=== PATIENT | female | born 1975 | race Caucasian/White ===

== ENCOUNTER → 2021-09-16 | Day surgery (SDC) | payer MEDICARE, MEDICAID ==
[2021-09-13 16:27] LABS: BASOPHILS % (AUTO) 0.4 % (0-1); EOSINOPHILS # (AUTO) 0.1 X10'3 (0-0.9); EOSINOPHILS % (AUTO) 1.5 % (0-6); LYMPHOCYTES # (AUTO) 1.4 X10'3 (1.1-4.8); LYMPHOCYTES % (AUTO) 24.6 % (21-51); MEAN CORPUSCULAR HEMOGLOBIN 34.8 PG (27.0-31.0); MEAN CORPUSCULAR HGB CONC 34.5 g/dL (33.0-36.5); MEAN CORPUSCULAR VOLUME 100.7 FL (78-98); MEAN PLATELET VOLUME 7.7 FL (7.4-10.4); MONOCYTES # (AUTO) 0.5 X10'3 (0-0.9); MONOCYTES % (AUTO) 9.1 % (2-12); NEUTROPHILS # (AUTO) 3.6 X10'3 (1.8-7.7); NEUTROPHILS % (AUTO) 64.4 % (42-75); PRE OP HEMATOCRIT 41.8 % (35.0-45.0); PRE OP HEMOGLOBIN 14.4 g/dL (12.0-16.0); PRE OP PLATELET COUNT 206 X10'3 (140-440); RED BLOOD COUNT 4.15 X10'6 (4.20-5.60); RED CELL DISTRIBUTION WIDTH 15.2 % (11.5-14.5)
[2021-09-13 16:29] LABS: CLARITY,URINE CLOUDY (Clear); COLOR,URINE YELLOW (Yellow); GLUCOSE, URINE NEGATIVE (Neg); KETONES,URINE TRACE mg/dl (Neg); LEUKOCYTE ESTERASE ,URINE MODERATE (Neg); NITRITES, URINE POSITIVE (Neg); OCCULT BLOOD,URINE NEGATIVE (Neg); PROTEIN,URINE TRACE mg/dl (Neg); UROBILINOGEN,URINE 0.2 E.U/dL (0.2-1.0)
[2021-09-13 16:31] LABS: UA COLLECTION TYPE CLN CATCH MIDSTREAM
[2021-09-13 16:40] LABS: ALBUMIN 3.2 G/DL (3.4-5.0); ALBUMIN/GLOBULIN RATIO 0.9 (1.1-1.5); ALKALINE PHOSPHATASE 86 IU/L (46-116); BLOOD UREA NITROGEN 11 MG/DL (7-18); CHLORIDE 103 MMOL/L (99-107); CREATININE 0.92 MG/DL (0.40-0.90); PRE OP ANION GAP 10 (8-16); PRE OP AST 7 U/L (10-37); PRE OP BILIRUB, TOTAL 0.3 MG/DL (0.0-1.0); PRE OP GLUCOSE 88 MG/DL (70-104); PRE OP POTASSIUM 4.4 MMOL/L (3.4-5.1); PRE OP SODIUM 136 MMOL/L (135-145); TOTAL CARBON DIOXIDE 23.4 MMOL/L (24-32); TOTAL PROTEIN 6.7 G/DL (6.4-8.2); eGFR 65 ML/MIN
[2021-09-13 16:43] LABS: BACTERIA,URINE 4+ /HPF (Neg); SQUAMOUS EPITHELIAL CELL,UR MANY /LPF (FEW); WBC,URINE TNTC /HPF (0-4)
[2021-09-13 16:45] LABS: RBC,URINE 0-2 /HPF (0-2)
[2021-09-13 17:05] LABS: HCG SERUM QL NEGATIVE; PRE OP ALT 2 U/L (30-65)
[~2021-09-16] VITALS: Ht 170.2 cm; Wt 90.7 kg
[~2021-09-16] MED LIST: CHOL20004 PO; DIAZ10SP INH; DIVA-37 PO; DOCUMENT DATE & TIME OF BETA-BLOCKER PO ONE; DULO30CA52 PO; DULO60CA65 PO; ESLI800T PO; LINA145C PO; MIRT45TA83 PO; OMEP20CA16 PO; PERA6TAB PO; PROP10TA10 PO; famotidine 20mg tablet PO ONE; ringers solution, lacted 1,000 ML IV SCH
--- NOTE | 2021-09-16 10:13 | NUR ---
PT ARRIVED TO PAS UNIT AT 0815, VITALS WERE TAKEN AND PT CHECKED IN. UPON ARRIVAL PT WAS AWAKE, ANSWERING QUESTIONS APPROPRIATELY AND WAS VISIBLY NERVOUS, PT STATES SHE WAS NERVOUS. NURSING GATHERED SUPPLIES AND ENTERED PT'S ROOM AND PT WAS LETHARGIC. PT WAS DIFFICULT TO AROUSE. PT WOULD WAKE UP BRIEFLY THEN FALL BACK TO SLEEP INSTANTLY, NURSING HAS BEEN UNABLE TO KEEP PATIENT AWAKE LONG ENOUGH TO GET THROUGH PRE-OP QUESTIONS. PT PLACED ON MONITOR, O2 SAT WAS LOW 90'S, PT THEN PLACED ON 3L NC PT SATS ANY WHERE FROM 85-98% WHILE DEEP SLEEP AND SNORING. VSS. PUPILS ARE DILATED WHEN FIRST WAKING UP, BOTH EQUAL AND REACTIVE TO LIGHT. ANESTHESIA MADE AWARE OF PT CONDITION, ORDER RECEIVED TO COLLECT URINE AND SEND FOR UA. URINE HAS BEEN COLLECTED AND SEND TO LAB, AWAITING RESULTS. PT IS STILL SLEEPY, WAKES MOMENTARILY TO VERBAL STIMULI THEN FALLS BACK TO SLEEP. IV WAS STARTED (20G PIV TO RT HAND) AND LR IS INFUSING. ZERO MEDICATIONS HAVE BEEN GIVEN. WILL CONTINUE TO ASSESS.
[2021-09-16 10:24] LABS: URINE AMPHETAMINE SCREEN NEGATIVE (Neg); URINE BARBITUATE SCREEN NEGATIVE (Neg); URINE BENZODIAZEPINES SCREEN NEGATIVE (Neg); URINE CANNABINOID SCREEN POSITIVE (Neg); URINE COCAINE SCREEN NEGATIVE (Neg); URINE METHADONE SCREEN NEGATIVE (Neg); URINE OPIATE SCREEN NEGATIVE (Neg); URINE PHENCYCLIDINE SCREEN NEGATIVE (Neg)
[2021-09-16 10:53] LABS: ABG BASE EXCESS 3.6 mmol/L (-2.0-2.0); ABG HCO3 30.1 mmol/L (22.0-26.0); ABG OXYGEN SATURATION 96.3 % (94-97); ABG PCO2 (T) 53.7 mmHg (32.0-45.0); ALLEN'S TEST POSITIVE; FCOHb 1.6 % (0.0-3.9); FLOW 3 L/min; FMetHb 0.4 % (0.0-1.5); FO2Hb 94.4 % (94-97); TOTAL HEMOGLOBIN 13.8 G/dl (12.0-16.0)
--- NOTE | 2021-09-16 12:00 | NUR ---
ABG WAS COLLECTED AND HAS RESULTED, PLEASE SEE CHART FOR INFO. EPIC WILLOW ANALYST ALONG WITH NURSING AT PT'S BEDSIDE TO DISCUSS PLAN WITH PT. MD IS AWARE OF PT'S CONDITION AND DECISION WAS MADE TO CANCEL PT'S SURGERY FOR TODAY. PT WAS INSTRUCTED TO FOLLOW UP WITH PRIMARY MD AND DR CHAKRABORTY'S OFFICE. PT IS UNDERSTANDING AND EXPRESSED THAT SHE WANTS TO BE SAFE AND AGREED TO NOT MOVE FORWARD WITH SURGERY TODAY. PT'S RIDE WILL BE CALLED AND PT WILL D/C TO TO FOLLOW UP.
--- NOTE | 2021-09-16 13:31 | NUR ---
PT'S SURGERY WAS CANCELED D/T PT BEING SO LETHARGIC. PT INSTRUCTED TO FOLLOW UP WITH PRIMARY MD WELL DR CHAKRABORTY'S OFFICE. PT ALSO STATED SHE WOULD FOLLOW UP WITH [facility] IN [facility] TO RECEIVING NEW CPAP MACHINE. PT WAS TAKEN DOWN TO RIDE VIA WHEELCHAIR. PT HAD ALL OF HER PERSONAL BELONGINGS WELL BOOT AND CRUTCHES. PT'S FATHER WAS HER RIDE HOME AND WAS INSTRUCTED ON HOW TO PROCEED FOR RESCHEDULING OF SURGERY.
== END | disposition home or self-care (01) ==
LOC: PAS 08:00
PROVIDERS: ATTEND Podiatrist Foot & Ankle Surgery
DX: S82.401A Unspecified fracture of shaft of right fibula, initial encounter for closed fracture (principal); Z53.8 Procedure and treatment not carried out for other reasons; S82.871A Displaced pilon fracture of right tibia, initial encounter for closed fracture; M25.471 Effusion, right ankle; X58.XXXA Exposure to other specified factors, initial encounter; Y93.89 Activity, other specified; Y92.89 Other specified places as the place of occurrence of the external cause; Y99.8 Other external cause status; Z79.899 Other long term (current) drug therapy; F17.210 Nicotine dependence, cigarettes, uncomplicated; K21.9 Gastro-esophageal reflux disease without esophagitis; F32.9 Major depressive disorder, single episode, unspecified; F43.10 Post-traumatic stress disorder, unspecified
CPT/HCPCS: 36415; 36600; 80053; 80305; 81001; 82803; 82948; 84703; 85018; 85025; 87811; 93005; C1758; J7120; A4615

== ENCOUNTER 2021-09-23 11:11 | Day surgery (SDC) | payer MEDICARE, MEDICAID ==
[~2021-09-23] VITALS: Ht 170.2 cm; Wt 93.7 kg
[2021-09-23] VITALS (15 sets, daily range): BP systolic 107–140; BP diastolic 73–96
[2021-09-23] MEDS: ceFAZolin inj. 2,000 MG in dextrose 5%-water 100 ML IV ONE (05:30)
[~2021-09-23 11:11] MED LIST changes: +albuterol 2.5 MG/3 ML nebule NEB PRN; -famotidine 20mg tablet PO ONE; -ringers solution, lacted 1,000 ML IV SCH
[2021-09-23] MEDS: famotidine 20mg tablet PO ONE (12:07)
[2021-09-23] MEDS: ringers solution, lacted 1,000 ML IV SCH (12:07)
[2021-09-23] MEDS ORDERED: propranolol 10mg tablet PO STA (12:27)
[2021-09-23] MEDS ORDERED: fentaNYL/PF 50MCG/1 ML 2ML syringe ONE ×2 (13:14→15:35)
[2021-09-23] MEDS ORDERED: midazolam 1 mg/ML 2ml injection ONE (13:14)
[2021-09-23] MEDS ORDERED: sevoflurane 250ml liquid IH ONE (13:14)
[2021-09-23] MEDS ORDERED: ePHEDrine 50MG/ML INJ. ONE (13:14)
[2021-09-23] MEDS ORDERED: cloNIDine hcl/PF 100mcg/ml inj ONE (13:16)
[2021-09-23] MEDS ORDERED: morphine 4 MG/ML inj SYRINge IV PRN (14:20)
[2021-09-23] MEDS ORDERED: ROPIVAcaine 0.2% (10 MG/5 ML) BOLUS INJECTION POPLITEAL PRN (14:20)
[2021-09-23] MEDS ORDERED: ringers solution, lacted 1,000 ML IV SCH (14:20)
[2021-09-23] MEDS ORDERED: ondansetron/PF 4mg/2ml inj IV PRN (14:20)
[2021-09-23] MEDS ORDERED: morphine 2 MG/ML inj. syringe IV PRN (14:20)
[2021-09-23] MEDS ORDERED: meperidine/PF 25mg/ml syringe IV PRN ×3 (14:20)
[2021-09-23] MEDS ORDERED: proCHLORperazine 10 MG/2 ml inj IV PRN (14:20)
[2021-09-23] MEDS ORDERED: propofol inj 20 ML IV ONE (14:54)
[2021-09-23] MEDS ORDERED: LIDOcaine 1%/PF 5ML 10 MG/ML VIAL ONE (14:54)
[2021-09-23] MEDS ORDERED: dexamethasone sod phosphate 4mg/ml inj. ONE (14:54)
[2021-09-23] MEDS ORDERED: glycopyrrolate 0.2mg/ml inj ONE (14:54)
[2021-09-23] MEDS ORDERED: rocuronium 10mg/ml inj IV ONE (14:54)
[2021-09-23] MEDS ORDERED: neostigmine methylsulfate 1 MG/ML 10ml vial ONE (14:54)
[2021-09-23] MEDS ORDERED: ondansetron/PF 4mg/2ml inj ONE (14:54)
[2021-09-23] MEDS ORDERED: acetaminophen 1,000mg/100ml IV 100 ML IV ONE (15:35)
[2021-09-23] MEDS ORDERED: labetalol 20mg/4ml (5mg/ml) syringe IV ONE (15:45)
[2021-09-23] MEDS ORDERED: morphine 10mg/ml inj. ONE ×2 (16:57→16:58)
[2021-09-23] MEDS ORDERED: bacitracin 15gm ointment TP ONE (17:00)
--- NOTE | 2021-09-23 17:31 | NUR ---
Received from OR via [facility] , accompanied by Anesthesiologist KELTON and report given by Anesthesiolgist. PT ARRIVES TO RR DROWSY BUT RESPONSIVE TO TOUCH STIMULI. PT SLEEPING BETWEEN CARE DENIES PAIN, MASK 10L 90-95%. R FOOT SPLINT/WRAP IN PLACE, DRY AND INTACT, RLE SKIN WARM TO TOUCH. ON-Q ACCESS TO R THIGH, CLEAN DRY AND INTACT. Addendum: 09/23/21 at 1757 by Capo Pacheco RN Amended: Links added.
--- NOTE | 2021-09-23 19:00 | NUR ---
PT UNABLE TO VOID AND SYMPTOMATIC URINARY RETENTION, NOTIFIED, AT BEDSIDE. STRAIGHT CATHETER PERFORMED BY FEMALE RN, 780 ML OUT. Addendum: 09/23/21 at 1931 by Capo Pacheco RN Amended: Links added.
[2021-09-23] MEDS: ROPIVAcaine 0.2%/PF PUMP/bolus 545 ML POPLITEAL SCH (19:14)
--- NOTE | 2021-09-23 19:15 | NUR ---
ROPIVICAINE PUMP INSTRUCTION AND EDUCATION PROVIDED. PT VERBALIZED UNDERSTANDING. Addendum: 09/23/21 at 1928 by Capo Pacheco RN Amended: Links added.
--- NOTE | 2021-09-23 20:11 | NUR ---
PT OUT OF PACU VIA WHEELCHAIR INTO CARE OF JORDEN. PT STEADY WITH STAND AND PIVOT AND INDEPENDENT, PROFICIENT IN CRUTCH USE. PT HAS NO COMPLAINT OF PAIN, DRESSING CLEAN DRY AND INTACT TO RLE. POSITIVE CMS. PT AAOX4. DC TO POV WITHOUT INCIDENT. IV REMOVED. Addendum: 09/23/21 at 2012 by Capo Pacheco RN Amended: Links added.
== END 2021-09-23 20:11 | disposition home or self-care (01) ==
LOC: PAS 11:11
PROVIDERS: ATTEND Podiatrist Foot & Ankle Surgery
DX: S82.401A Unspecified fracture of shaft of right fibula, initial encounter for closed fracture (principal); S82.871A Displaced pilon fracture of right tibia, initial encounter for closed fracture; M25.471 Effusion, right ankle
CPT/HCPCS: 27792; 27827; 64450; 73600; 76000; 76942; 82948; 87635; 93306; A6223; C1713; C1758; C9803; J0131; J0690; J0735; J1100; J2250; J2274; J2405; J2704; J2710; J2795; J3010; J3490; J7030; J7060; J7120; Z7506; Z7508; Z7512; A4618; A6253; A6449; A7000

== ENCOUNTER 2022-02-13 11:47 | Emergency (ER) | payer MEDICARE, MEDICAID ==
[~2022-02-13] VITALS: Ht 172.7 cm; Wt 90.9 kg
[~2022-02-13 11:47] MED LIST changes: -DOCUMENT DATE & TIME OF BETA-BLOCKER PO ONE; -albuterol 2.5 MG/3 ML nebule NEB PRN
[2022-02-13 11:51] VITALS: BP 137/96
== END 2022-02-13 15:07 | disposition left against medical advice (07) ==
LOC: ER 11:47
DX: R23.9 Unspecified skin changes (principal); Z53.21 Procedure and treatment not carried out due to patient leaving prior to being seen by health care provider